=== PATIENT | male | born 2000 | race African-American/Black ===

== ENCOUNTER 2022-08-23 17:09 | Emergency (ER) | payer OTHER ==
[2022-08-23] MEDS ORDERED: Orphenadrine Citrate 60 MG/2 ML VIAL IM SCH (19:00)
[2022-08-23] MEDS ORDERED: Ketorolac Tromethamine 30 MG/ML VIAL ONE (19:02)
== END 2022-08-23 20:00 | disposition home or self-care (01) ==
LOC: CSHERS 17:09
DX: M54.50 Low back pain, unspecified (principal)
CPT/HCPCS: 96372; 99283; J1885; J2360

== ENCOUNTER 2022-12-14 18:16 | Emergency (ER) | payer OTHER | END 2022-12-14 19:56 | disposition home or self-care (01) | LOC: CSHERS 18:16 | DX: S61.252A Open bite of right middle finger without damage to nail, initial encounter (principal); W54.0XXA Bitten by dog, initial encounter ==